=== PATIENT | male | born 1980 | race Caucasian/White ===

== ENCOUNTER 2016-10-21 17:46 | Emergency (ER) | payer OTHER ==
[~2016-10-21] VITALS: Ht 185.4 cm; Wt 85.3 kg
[~2016-10-21 17:46] MED LIST: NAPROSYN500 MG PO; ULTRAM 50MG TAB50 MG PO
[2016-10-21] MEDS ORDERED: SUBOXONE 8 MG-1 EAC3 SL (18:01)
[2016-10-21] MEDS ORDERED: XANAX1 MG PO ×2 (18:01→18:06)
[2016-10-21 18:37] VITALS: BP 108/66
[2016-11-01] MEDS ORDERED: NORCO 5-325 TA1 EACH PO (11:22)
== END 2016-10-21 18:38 | disposition home or self-care (01) ==
LOC: ER 17:46
DX: F11.23 Opioid dependence with withdrawal (principal); F19.930 Other psychoactive substance use, unspecified with withdrawal, uncomplicated; K21.9 Gastro-esophageal reflux disease without esophagitis

== ENCOUNTER 2016-10-26 20:14 | Emergency (ER) | payer OTHER ==
[~2016-10-26] VITALS: Ht 185.4 cm; Wt 86.2 kg
--- NOTE | ~2016-10-26 | EKG ---
[address] [place] [address] ELECTROCARDIOGRAM REPORT Name: AGNESEDWARD Room #: DEP [facility]#: [id number] Admission: 10/26/16 Attend Phys: Discharge: 10/26/16 Date of : 82 Report #: [id number] THIS REPORT FOR: //name// [facility] ED Test Date: 2016-10-26 Test Time: 20:20:55 Pat Name: EDWARD ALARCON Department: Room: Gender: M Environmental Consultant: [id number] : 1980 Requested By: Belén Kohler Order Number: [id number] MD: Evaristo Lyon Measurements Intervals [place] Rate: 78 P: 0 NC: 192 QRS: 46 QRSD: 99 T: 58 QT: 386 QTc: 440 Interpretive Statements Sinus rhythm No significant abnormality Baseline wander in lead(s) I,III,aVL No previous ECG available for comparison Electronically Signed On 10-27-2016 9:05:17 AMBULATORY SERVICE REPRESENTATIVE by Evaristo Lyon [email or web address] <ELECTRONICALLY SIGNED> By: Evaristo Lyon MD, [facility] 10/27/16904 19 19 Evaristo Lyon MD, FACC /EPI
[~2016-10-26 20:14] MED LIST changes: +SUBOXONE 8 MG-1 EAC3 SL; +XANAX1 MG PO
[2016-10-26] MEDS ORDERED: ASPIR 8181 MG PO (20:25)
[2016-10-26] MEDS ORDERED: LISINOPRIL5 MG PO (20:26)
[2016-10-26] MEDS ORDERED: EFFEXOR XR75 MG PO (20:26)
[2016-10-26] MEDS ORDERED: ABILIFY20 MG PO (20:26)
[2016-10-26] MEDS ORDERED: COUMADIN 5 MG TA5 M1 PO (20:27)
[2016-10-26] MEDS ORDERED: LIPITOR 20 MG T20 M1 PO (20:27)
[2016-10-26] MEDS ORDERED: DOC-Q-LACE100 MG PO (20:28)
[2016-10-26 20:36] LABS: POC CA IONIZED 4.6 mg/dL (4.5-5.3); POC CREATININE 0.7 mg/dL (0.6-1.3); POC POTASSIUM 4.3 mmol/L (3.5-5.1)
[2016-10-26 20:37] LABS: ABSOLUTE NEUTROPHILS 7.5 thou/uL (1.4-8.2); BASOPHILS 1.1 % (0.0-2.0); EOSINOPHILS 0.4 % (0.0-3.0); HEMATOCRIT 45.6 % (42.0-52.0); HEMOGLOBIN 15.5 gm/dL (14.0-18.0); LYMPHOCYTES 12.9 % (24.0-44.0); MANUAL DIFF NO; MCH 30.3 pg (26.0-34.0); MCV 89.2 fL (80.0-100.0); MONOCYTES 6.4 % (1.0-8.0); PLATELET COUNT 337 thou/uL (150-400); POLYS 79.2 % (36.0-66.0); RBC 5.12 mil/uL (4.50-6.00); RDW 14.7 % (10.5-14.5); WBC 9.5 thou/uL (4.0-11.0)
[2016-10-26] MEDS ORDERED: ATIVAN1 MG PO (20:39)
[2016-10-26 20:46] LABS: ANION GAP 6 mmol/L (7-16); BUN 9 mg/dL (7-18); CALCIUM 9.4 mg/dL (8.5-10.1); CHLORIDE 103 mmol/L (98-107); CO2 29 mmol/L (21-32); CREATININE 0.9 mg/dL (0.6-1.3); GLUCOSE 92 mg/dL (70-99); POTASSIUM 4.3 mmol/L (3.5-5.1); SODIUM 138 mmol/L (136-145)
[2016-10-26 20:48] VITALS: BP 121/73
[2016-10-26 20:55] LABS: ALBUMIN 4.1 g/dL (3.4-5.0); ALKALINE PHOSPHATASE 77 U/L (46-116); SGOT 20 U/L (15-37); SGPT 32 U/L (30-65); TOTAL BILIRUBIN 0.6 mg/dL (<0.1-1.0); TOTAL PROTEIN 8.2 g/dL (6.4-8.2); TROPONIN-I < 0.04 ng/mL (<0.04-0.07)
[2016-11-01] MEDS ORDERED: NORCO 5-325 TA1 EACH PO (11:22)
== END 2016-10-26 22:19 | disposition left against medical advice (07) ==
LOC: ER 20:14
PROVIDERS: Emergency Medicine
DX: I71.03 Dissection of thoracoabdominal aorta (principal); Q87.40 Marfan syndrome, unspecified; K21.9 Gastro-esophageal reflux disease without esophagitis; F17.210 Nicotine dependence, cigarettes, uncomplicated

== ENCOUNTER 2017-03-20 23:15 | Emergency (ER) | payer OTHER ==
[~2017-03-20] VITALS: Ht 185.4 cm; Wt 94.8 kg
[~2017-03-20 23:15] MED LIST changes: +ABILIFY20 MG PO; +ASPIR 8181 MG PO; +ATIVAN1 MG PO; +COUMADIN 5 MG TA5 M1 PO; +DOC-Q-LACE100 MG PO; +EFFEXOR XR75 MG PO; +LIPITOR 20 MG T20 M1 PO; +LISINOPRIL5 MG PO; +NORCO 5-325 TA1 EACH PO
[2017-03-21 00:38] LABS: INR 1.8; PROTIME 18.3 Seconds (9.3-11.4)
[2017-03-21] MEDS ORDERED: CHLORDIAZEPOXID10 MG PO (01:05)
[2017-03-21 01:23] VITALS: BP 100/64
== END 2017-03-21 01:06 | disposition home or self-care (01) ==
LOC: ER 23:15
PROVIDERS: Emergency Medicine
DX: F13.230 Sedative, hypnotic or anxiolytic dependence with withdrawal, uncomplicated (principal); K21.9 Gastro-esophageal reflux disease without esophagitis; Z95.4 Presence of other heart-valve replacement; Z98.890 Other specified postprocedural states; F17.210 Nicotine dependence, cigarettes, uncomplicated